=== PATIENT | male | born 1965 | race Asian ===

== ENCOUNTER 2024-05-22 21:33 | Emergency (ER) | payer BC ==
[2024-05-22] MEDS ORDERED: Nitroglycerin 2% Ointment 1 INCH/1 GM Packet ONE (21:52)
[2024-05-22] MEDS ORDERED: Aspirin Chewable 81 MG TAB ONE (21:52)
[2024-05-22 22:28] LABS: #Basophils 0.03 10x3/uL (0.0-0.2); #Eosinophils 0.02 10x3/uL (0.0-0.5); #Monocytes 0.67 10x3/uL (0.0-1.1); #Neutrophils 6.79 10x3/uL (1.5-8.4); %Basophils 0.3 % (0.0-2.0); %Eosinophils 0.2 % (0.0-6.0); %Lymphocytes 22.4 % (18.0-47.0); %Monocytes 6.9 % (0.0-10.0); %Neutrophils 69.8 % (40.0-75.0); Hematocrit 46.3 % (38.8-50.0); Hemoglobin 14.5 g/dL (13.5-17.5); Mean Corpuscular HGB CONC 31.3 g/dL (32.0-36.0); Mean Corpuscular Hemoglobin 26.6 pg (27.0-33.0); Mean Corpuscular Volume 84.8 fL (81.2-95.1); Mean Platelet Volume 10.9 fL (7.4-10.4); Platelet Count 224 10x3/uL (150-450); Red Blood Cell (RBC) Count 5.46 10x6/uL (4.32-5.72); White Blood Cell (WBC) Count 9.7 10x3/uL (3.5-10.5)
[2024-05-22 22:29] LABS: Anion Gap 16 mmol/L (10-20); BUN (Urea Nitrogen) 16 mg/dL (8.4-25.7); Calc. Creatinine Clearance 0 mL/min (70-130); Calcium 9.9 mg/dL (7.8-10.44); Carbon Dioxide 24 mmol/L (22-29); Chloride 101 mmol/L (98-107); Estimated GFR 72; Glucose 161 mg/dL (70-105); Potassium 3.8 mmol/L (3.5-5.1); Sodium 137 mmol/L (136-145)
[2024-05-22 22:37] LABS: Troponin I Less than 0.010 ng/mL (< 0.028)
[2024-05-22] MEDS ORDERED: Ketorolac Tromethamine 30 MG (1 mL) VIAL ONE (22:42)
[2024-05-23] MEDS ORDERED: Milk Of Magnesia 30 ML UDCUP ONE (00:40)
[2024-05-23] MEDS ORDERED: Lidocaine Viscous Sol 2% 15 ml UD Cup ONE (00:40)
[2024-05-23 01:02] LABS: Troponin I Less than 0.010 ng/mL (< 0.028)
[2024-05-23] MEDS ORDERED: traMADol HCl 50 MG TAB ONE (02:01)
== END 2024-05-23 02:15 | disposition home or self-care (01) ==
LOC: CSHERS 21:33
DX: R09.1 Pleurisy (principal); I12.9 Hypertensive chronic kidney disease with stage 1 through stage 4 chronic kidney disease, or unspecified chronic kidney disease; N18.9 Chronic kidney disease, unspecified; Z94.0 Kidney transplant status
CPT/HCPCS: 36415; 71045; 80048; 84484; 85025; 85379; 93005; 96374; J1885